=== PATIENT | female | born 1995 | race American Indian/Alaskan Native ===

== ENCOUNTER 2016-12-25 14:06 | Emergency (ER) | payer OTHER ==
[2016-12-25 14:18] VITALS: TEMP 98.3
[2016-12-25 16:01] VITALS: BP 125/75; PULSE 78; RESP 16
[2016-12-25 17:55] VITALS: O2SAT 100
== END 2016-12-25 16:00 | disposition home or self-care (01) ==
LOC: C.ER 14:06
DX: S69.91XA Unspecified injury of right wrist, hand and finger(s), initial encounter (principal); V48.3XXA Unspecified car occupant injured in noncollision transport accident in nontraffic accident, initial encounter; Y92.89 Other specified places as the place of occurrence of the external cause

== ENCOUNTER 2016-12-26 00:30 | Emergency (ER) | payer OTHER ==
[2016-12-26 00:35] VITALS: BP 131/87; PULSE 83; RESP 18; TEMP 97.9; O2SAT 96
== END 2016-12-26 01:42 | disposition home or self-care (01) ==
LOC: C.ER 00:30
DX: S60.011A Contusion of right thumb without damage to nail, initial encounter (principal); W23.0XXA Caught, crushed, jammed, or pinched between moving objects, initial encounter; Y93.89 Activity, other specified; Y92.89 Other specified places as the place of occurrence of the external cause